=== PATIENT | male | born 1950 | race Caucasian/White ===

== ENCOUNTER 2023-01-11 10:02 | Outpatient (AMB) | payer MEDICARE, OTHER, SELFPAY ==
--- NOTE | 2023-01-11 10:09 | HO.NEPHOV ---
HPI HPI Comments History of Present Illness Details I had the delight of seeing Barry in follow-up for his CKD and hypertension. He is a diabetic. He does not monitor his blood sugar at home. He is not orthostatic. He does not have any chest pain, shortness of breath, proximal nocturnal dyspnea, orthopnea. He is trying to lose weight. His last renal ultrasound was normal. He is not on any MIGUEL ÁNGEL inhibitor. He takes nonsteroidal anti-inflammatory medications as o a needed basis. His last serum creatinine had been close to his baseline. [facility] Medical History (Updated 01/11/23 @ 10:45 by Suresh Cee MD) Acute kidney injury Diabetes Essential (primary) hypertension Chronic kidney disease, stage 3a Surgical History (Updated 01/11/23 @ 10:19 by Polly Morgan MA) History of ankle surgery History of surgery of head Social History (Updated 01/11/23 @ 10:18 by Polly Morgan MA) Alcohol intake: current Patient Tobacco Use Status: Former Tobacco user Vital Signs 01/11/23 10:11 Height 5 ft 9 in Weight 273 lb BMI 40.3 BP 100/60 Blood Pressure Location Lt brachial Position Sitting Pulse 102 H Pulse Source Pulse Oximeter Physical Exam Vital Signs: Last Vital Signs Pulse 102 H 01/11/23 10:11 BP 100/60 01/11/23 10:11 BMI result Body Mass Index 40.3 Const General: comfortable and no acute distress Orientation/consciousness: patient oriented x3 HEENT Head: Yes normocephalic Mouth: Normal oral and palatal mucosa present Eyes EOM: EOMs intact bilaterally Neck Neck: Yes supple Resp Auscultation: clear to auscultation bilaterally Cardio Jugular venous distension: no JVD Rate: regular rate GI Palpation (GI): Soft to palpation Auscultation: normal bowel sounds General: Yes no CVA tenderness Back/Spine/Pelvis Back: no CVA tenderness Skin General skin exam: no rashes or lesions noted Neuro General: patient oriented x3 and moves all extremities Extrem General: Yes no pedal edema Assessment & Plan Assessment & Plan (1) Essential (primary) hypertension: Code(s): I10 - Essential (primary) hypertension (2) Chronic kidney disease, stage 3a: Code(s): N18.31 - Chronic kidney disease, stage 3a (3) Diabetes: Code(s): E11.9 - Type 2 diabetes mellitus without complications Plan 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 He does not have any significant proteinuria. He is trying to lose weight. His blood pressure is currently at goal. He does not check his blood sugar at home. He is not on any Jardiance or Farxiga. I did not initiate him on MIGUEL ÁNGEL-inhibitor given his soft blood pressure. He should avoid nonsteroidal anti-inflammatory medications and should remain well hydrated. I did not make any medication changes today. All questions were answered. Follow-up blood work and urine studies were ordered. Time spend for patient encounter, retrieving data and documentation 22 minutes. Orders: Orders Electrolytes Today I10 - Essential (primary) hypertension, N18.31 - Chronic kidney disease, stage 3a Blood Urea Nitrogen Today I10 - Essential (primary) hypertension, N18.31 - Chronic kidney disease, stage 3a Creatinine Today I10 - Essential (primary) hypertension, N18.31 - Chronic kidney disease, stage 3a Protein Creatinine Ratio, Ur Today I10 - Essential (primary) hypertension, N18.31 - Chronic kidney disease, stage 3a Hemoglobin A1c Today E11.9 - Type 2 diabetes mellitus without complications, I10 - Essential (primary) hypertension, N18.31 - Chronic kidney disease, stage 3a Calcium Today I10 - Essential (primary) hypertension, N18.31 - Chronic kidney disease, stage 3a Coding Level of Care Code Est Pt Level 3 (94538) Diagnoses Essential (primary) hypertension I10 Chronic kidney disease, stage 3a N18.31 Diabetes E11.9
[2023-01-11 10:11] VITALS: BP 100/60; PULSE 102; BMI 40.3
== END 2023-01-11 10:49 | disposition home or self-care (01) ==
PROVIDERS: PCP Internal Medicine; Visit Provider Internal Medicine Nephrology
DX: I12.9 Hypertensive chronic kidney disease with stage 1 through stage 4 chronic kidney disease, or unspecified chronic kidney disease (principal); N18.31 Chronic kidney disease, stage 3a; E11.22 Type 2 diabetes mellitus with diabetic chronic kidney disease
CPT/HCPCS: 99213

== ENCOUNTER → 2023-01-11 10:02 | Outpatient (BNVA) | payer MEDICARE, OTHER, SELFPAY | PROVIDERS: PCP Internal Medicine; Visit Provider Internal Medicine Nephrology | DX: E11.22 Type 2 diabetes mellitus with diabetic chronic kidney disease (principal); I12.9 Hypertensive chronic kidney disease with stage 1 through stage 4 chronic kidney disease, or unspecified chronic kidney disease; N18.31 Chronic kidney disease, stage 3a | CPT/HCPCS: 99212 ==

== ENCOUNTER 2023-04-14 13:18 | Outpatient (REF) | payer MEDICARE, OTHER, SELFPAY ==
[2023-04-14 17:31] LABS: Anion Gap 13 (12-20); Blood Urea Nitrogen 24 mg/dL (9-16); Calcium 9.1 mg/dL (8.4-10.2); Carbon Dioxide 25 mmol/L (22-29); Chloride 106 mmol/L (96-108); Estimated Glomerular Filt Rate > 60; Potassium 4.2 mmol/L (3.3-5.1); Sodium 140 mmol/L (135-145)
[2023-04-14 17:34] LABS: Estimated Average Glucose 154 mg/dL
== END 2023-04-14 13:19 | disposition home or self-care (01) ==
LOC: HO.HKASLDS 13:18
PROVIDERS: Visit Provider Internal Medicine Nephrology
DX: I12.9 Hypertensive chronic kidney disease with stage 1 through stage 4 chronic kidney disease, or unspecified chronic kidney disease (principal); E11.22 Type 2 diabetes mellitus with diabetic chronic kidney disease; N18.31 Chronic kidney disease, stage 3a
CPT/HCPCS: 36415; 80051; 82310; 82565; 83036; 84520

== ENCOUNTER 2023-04-20 09:11 | Outpatient (AMB) | payer MEDICARE, OTHER, SELFPAY ==
--- NOTE | 2023-04-20 09:30 | HO.NEPHOV_ITS ---
HPI HPI Comments History of Present Illness Details I had the delight of seeing Barry in follow-up for his CKD and hypertension. He is a diabetic. He does not monitor his blood sugar at home. He is not orthostatic. He does not have any chest pain, shortness of breath, proximal nocturnal dyspnea, orthopnea. He is trying to lose weight. His last renal ultrasound was normal. He is not on any MIGUEL ÁNGEL inhibitor. He takes nonsteroidal anti-inflammatory medications as on a needed basis. His last serum creatinine had been close to his baseline. [facility] Medical History (Updated 01/11/23 @ 10:45 by Suresh Cee MD) Acute kidney injury Diabetes Essential (primary) hypertension Chronic kidney disease, stage 3a Surgical History History of ankle surgery History of surgery of head Social History Alcohol intake: current Patient Tobacco Use Status: Former Tobacco user Vital Signs 04/20/23 09:31 Height 5 ft 9 in Weight 278 lb 2 oz BMI 41.1 BP 126/70 Blood Pressure Location Lt brachial Position Sitting Pulse 94 Pulse Source Pulse Oximeter Pulse Oximetry (%) 97 Oxygen Delivery Method Room Air Physical Exam Vital Signs: Last Vital Signs Pulse 94 04/20/23 09:31 BP 126/70 04/20/23 09:31 Pulse Ox 97 04/20/23 09:31 Oxygen Delivery Method Room Air 04/20/23 09:31 BMI result Body Mass Index 41.1 Const General: comfortable and no acute distress Orientation/consciousness: patient oriented x3 HEENT Head: Yes normocephalic Mouth: Normal oral and palatal mucosa present Eyes EOM: EOMs intact bilaterally Neck Neck: Yes supple Resp Auscultation: clear to auscultation bilaterally Cardio Jugular venous distension: no JVD Rate: regular rate GI Palpation (GI): Soft to palpation Auscultation: normal bowel sounds General: Yes no CVA tenderness Back/Spine/Pelvis Back: no CVA tenderness Skin General skin exam: no rashes or lesions noted Neuro General: patient oriented x3 and moves all extremities Extrem General: Yes no pedal edema Assessment & Plan Assessment & Plan (1) Chronic kidney disease, stage 3a: Code(s): N18.31 - Chronic kidney disease, stage 3a (2) Essential (primary) hypertension: Code(s): I10 - Essential (primary) hypertension Plan 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 He does not have any significant proteinuria. He is trying to lose weight. His blood pressure is currently at goal. He does not check his blood sugar at home. He is not on any Jardiance / Farxiga/MIGUEL ÁNGEL-inhibitor. I plan to initiate him on low dose ACEI at next visit. He should avoid nonsteroidal anti-inflammatory medications and should remain well hydrated. He has a CPAP. I did not make any medication changes today. All questions were answered. Follow-up blood work and urine studies were ordered. Orders: Orders Creatinine Today I10 - Essential (primary) hypertension, N18.31 - Chronic kidney disease, stage 3a Blood Urea Nitrogen Today I10 - Essential (primary) hypertension, N18.31 - Chronic kidney disease, stage 3a Electrolytes Today I10 - Essential (primary) hypertension, N18.31 - Chronic kidney disease, stage 3a Protein Creatinine Ratio, Ur Today I10 - Essential (primary) hypertension, N18.31 - Chronic kidney disease, stage 3a Coding Level of Care Code Est Pt Level 3 (84188) Diagnoses Chronic kidney disease, stage 3a N18.31 Essential (primary) hypertension I10 Results Reviewed Nephrology Results: Sodium 140 mmol/L (135-145) 04/14/23 Potassium 4.2 mmol/L (3.3-5.1) 04/14/23 Chloride 106 mmol/L (96-108) 04/14/23 Carbon Dioxide 25 mmol/L (22-29) 04/14/23 BUN 24 mg/dL (9-16) H 04/14/23 Creatinine 1.16 mg/dL (0.5-1.4) 04/14/23 Calcium 9.1 mg/dL (8.4-10.2) 04/14/23
[2023-04-20 09:31] VITALS: BP 126/70; PULSE 94; O2SAT 97; BMI 41.1
== END 2023-04-20 09:45 | disposition home or self-care (01) ==
PROVIDERS: PCP Internal Medicine; Visit Provider Internal Medicine Nephrology
DX: N18.31 Chronic kidney disease, stage 3a (principal); I10 Essential (primary) hypertension
CPT/HCPCS: 99213

== ENCOUNTER → 2023-04-20 09:11 | Outpatient (BNVA) | payer MEDICARE, OTHER, SELFPAY | PROVIDERS: PCP Internal Medicine; Visit Provider Internal Medicine Nephrology | DX: E11.22 Type 2 diabetes mellitus with diabetic chronic kidney disease (principal); I12.9 Hypertensive chronic kidney disease with stage 1 through stage 4 chronic kidney disease, or unspecified chronic kidney disease; N18.31 Chronic kidney disease, stage 3a | CPT/HCPCS: 99212 ==

== ENCOUNTER 2023-08-11 08:50 | Outpatient (REF) | payer MEDICARE, OTHER, SELFPAY ==
[2023-08-11 18:29] LABS: Anion Gap 13 (12-20); Blood Urea Nitrogen 21 mg/dL (9-16); Carbon Dioxide 25 mmol/L (22-29); Chloride 107 mmol/L (96-108); Estimated Glomerular Filt Rate > 60; Potassium 4.1 mmol/L (3.3-5.1); Sodium 141 mmol/L (135-145)
[2023-08-11 18:55] LABS: Protein/Creatinine Ratio, Ur 0.06 (<0.2); Total Protein Urine Random 15 mg/dL (<12)
== END 2023-08-11 08:51 | disposition home or self-care (01) ==
LOC: HO.HKASLDS 08:50
PROVIDERS: Visit Provider Internal Medicine Nephrology
DX: I12.9 Hypertensive chronic kidney disease with stage 1 through stage 4 chronic kidney disease, or unspecified chronic kidney disease (principal); N18.31 Chronic kidney disease, stage 3a
CPT/HCPCS: 36415; 80051; 82565; 82570; 84156; 84520

== ENCOUNTER 2023-08-17 09:39 | Outpatient (AMB) | payer MEDICARE, OTHER, SELFPAY ==
--- NOTE | 2023-08-17 09:42 | HO.NEPHOV ---
Vital Signs 08/17/23 09:50 Height 5 ft 9 in Weight 281 lb BMI 41.5 BP 124/70 Blood Pressure Location Lt brachial Position Sitting Pulse 93 Pulse Source Pulse Oximeter Pulse Oximetry (%) 95 Oxygen Delivery Method Room Air Intake Visit Reasons: 4 mon follow up/ Conf Records Analyst Required: No Accompanied by: Self / Same As Patient Allergies shellfish derived Allergy (Verified 08/17/23 09:52) Unknown HPI Comments Details: I had the delight of seeing Barry in follow-up for his CKD and hypertension. He is a diabetic. He does not monitor his blood sugar at home. He is not orthostatic. He does not have any chest pain, shortness of breath, proximal nocturnal dyspnea, orthopnea. He is trying to lose weight. His last renal ultrasound was normal. He is not on any MIGUEL ÁNGEL inhibitor. He takes nonsteroidal anti-inflammatory medications as on a needed basis. His last serum creatinine had been close to his baseline [facility] Medical History (Updated 01/11/23 @ 10:45 by Suresh Cee MD) Acute kidney injury Diabetes Essential (primary) hypertension Chronic kidney disease, stage 3a Surgical History History of ankle surgery History of surgery of head Social History Alcohol intake: current Patient Tobacco Use Status: Former Tobacco user Review of Systems Const All systems reviewed & are unremarkable except as noted in HPI and below Physical Exam Const General: comfortable and no acute distress Orientation/consciousness: patient oriented x3 HEENT Head: Yes normocephalic Mouth: Normal oral and palatal mucosa present Eyes EOM: EOMs intact bilaterally Neck Neck: Yes supple Resp Auscultation: clear to auscultation bilaterally Cardio Jugular venous distension: no JVD Rate: regular rate GI Palpation (GI): Soft to palpation Auscultation: normal bowel sounds General: Yes no CVA tenderness Back/Spine/Pelvis Back: no CVA tenderness Skin General skin exam: no rashes or lesions noted Neuro General: patient oriented x3 and moves all extremities Extrem General: Yes no pedal edema Results Reviewed Nephrology Results: Sodium 141 mmol/L (135-145) 08/11/23 Potassium 4.1 mmol/L (3.3-5.1) 06/19/24 Chloride 107 mmol/L (96-108) 08/11/23 Carbon Dioxide 25 mmol/L (22-29) 08/11/23 BUN 21 mg/dL (9-16) H 08/11/23 Creatinine 1.15 mg/dL (0.5-1.4) 08/11/23 Calcium 9.1 mg/dL (8.4-10.2) 04/14/23 Urine Creatinine 262.50 mg/dL 08/11/23 Protein/Creatinin Ratio 0.06 (<0.2) 08/11/23 Assessment & Plan Assessment & Plan (1) Chronic kidney disease, stage 3a: Code(s): N18.31 - Chronic kidney disease, stage 3a Category: Medical (2) Essential (primary) hypertension: Code(s): I10 - Essential (primary) hypertension Category: Medical Plan 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 He does not have any significant proteinuria. He is trying to lose weight. His blood pressure is currently at goal. He does not check his blood sugar at home. He is not on any Jardiance / Farxiga/MIGUEL ÁNGEL-inhibitor. He should avoid nonsteroidal anti-inflammatory medications and should remain well hydrated. He has a CPAP. I did not make any medication changes today. All questions were answered. Follow-up blood work ordered. Orders: Orders Creatinine Today I10 - Essential (primary) hypertension, N18.31 - Chronic kidney disease, stage 3a Electrolytes Today I10 - Essential (primary) hypertension, N18.31 - Chronic kidney disease, stage 3a Blood Urea Nitrogen Today I10 - Essential (primary) hypertension, N18.31 - Chronic kidney disease, stage 3a Coding Level of Care Code Est Pt Level 4 (19069) Diagnoses Chronic kidney disease, stage 3a N18.31 Essential (primary) hypertension I10
[2023-08-17 09:50] VITALS: BP 124/70; PULSE 93; O2SAT 95; BMI 41.5
== END 2023-08-17 10:19 | disposition home or self-care (01) ==
PROVIDERS: PCP Internal Medicine; Visit Provider Internal Medicine Nephrology
DX: N18.31 Chronic kidney disease, stage 3a (principal); I10 Essential (primary) hypertension
CPT/HCPCS: 99214

== ENCOUNTER → 2023-08-17 09:39 | Outpatient (BNVA) | payer MEDICARE, OTHER, SELFPAY | PROVIDERS: PCP Internal Medicine; Visit Provider Internal Medicine Nephrology | DX: I12.9 Hypertensive chronic kidney disease with stage 1 through stage 4 chronic kidney disease, or unspecified chronic kidney disease (principal); N18.31 Chronic kidney disease, stage 3a; E11.22 Type 2 diabetes mellitus with diabetic chronic kidney disease | CPT/HCPCS: 99212 ==

== ENCOUNTER 2024-02-08 14:01 | Outpatient (REF) | payer MEDICARE, OTHER, SELFPAY ==
[2024-02-08 16:28] LABS: Anion Gap 9 (12-20); Blood Urea Nitrogen 16 mg/dL (9-16); Carbon Dioxide 26 mmol/L (22-29); Chloride 106 mmol/L (96-108); Estimated Glomerular Filt Rate > 60; Potassium 4.2 mmol/L (3.3-5.1); Sodium 137 mmol/L (135-145)
[2024-02-08 16:53] LABS: Creatinine Urine 141.08 mg/dL; Protein/Creatinine Ratio, Ur 0.08 (<0.2); Total Protein Urine Random 11 mg/dL (<12)
== END 2024-02-08 14:02 | disposition home or self-care (01) ==
LOC: HO.HMGCLDS 14:01
PROVIDERS: PCP Internal Medicine; Visit Provider Internal Medicine Nephrology
DX: I10 Essential (primary) hypertension (principal); N18.31 Chronic kidney disease, stage 3a
CPT/HCPCS: 36415; 80051; 82565; 82570; 84156; 84520

== ENCOUNTER 2024-02-10 10:17 | Outpatient (AMB) | payer MEDICARE, SELFPAY ==
--- NOTE | 2024-02-10 10:25 | HO.NEPHOV ---
Vital Signs 02/10/24 10:26 Height 5 ft 9 in Weight 276 lb 6 oz BMI 40.8 BP 110/70 Blood Pressure Location Lt brachial Position Sitting Pulse 94 Pulse Source Pulse Oximeter Pulse Oximetry (%) 94 Oxygen Delivery Method Room Air Intake Visit Reasons: 6 mon follow up/ Conf Sap Security Architect Required: No Accompanied by: Spouse Allergies shellfish derived Allergy (Verified 02/10/24 10:26) Unknown HPI Comments Details: I had the delight of seeing Barry in follow-up for his CKD and hypertension. He is a diabetic. He does not monitor his blood sugar at home. He is not orthostatic. He does not have any chest pain, shortness of breath, proximal nocturnal dyspnea, orthopnea. He is trying to lose weight. His last renal ultrasound was normal. He is not on any MIGUEL ÁNGEL inhibitor. He takes nonsteroidal anti-inflammatory medications as on a needed basis. His last serum creatinine had been close to his baseline ON LICENSE OF [facility] Medical History (Updated 02/10/24 @ 10:42 by Suresh Cee MD) Acute kidney injury Diabetes Essential (primary) hypertension Chronic kidney disease, stage 3a Surgical History History of ankle surgery History of surgery of head Social History Alcohol intake: current Patient Tobacco Use Status: Former Tobacco user Review of Systems Const All systems reviewed & are unremarkable except as noted in HPI and below Physical Exam Vital Signs: Last Vital Signs Pulse 94 02/10/24 10:26 BP 110/70 02/10/24 10:26 Pulse Ox 94 02/10/24 10:26 Oxygen Delivery Method Room Air 02/10/24 10:26 BMI result Body Mass Index 40.8 Const General: comfortable and no acute distress Orientation/consciousness: patient oriented x3 HEENT Head: Yes normocephalic Mouth: Normal oral and palatal mucosa present Eyes EOM: EOMs intact bilaterally Neck Neck: Yes supple Resp Auscultation: clear to auscultation bilaterally Cardio Jugular venous distension: no JVD Rate: regular rate GI Palpation (GI): Soft to palpation Auscultation: normal bowel sounds General: Yes no CVA tenderness Back/Spine/Pelvis Back: no CVA tenderness Skin General skin exam: no rashes or lesions noted Neuro General: patient oriented x3 and moves all extremities Extrem General: Yes no pedal edema Results Reviewed Nephrology Results: Sodium 137 mmol/L (135-145) 02/08/24 Potassium 4.2 mmol/L (3.3-5.1) 02/08/24 Chloride 106 mmol/L (96-108) 02/08/24 Carbon Dioxide 26 mmol/L (22-29) 02/08/24 BUN 16 mg/dL (9-16) 02/08/24 Creatinine 0.99 mg/dL (0.5-1.4) 02/08/24 Calcium 9.1 mg/dL (8.4-10.2) 04/14/23 Urine Creatinine 141.08 mg/dL 02/08/24 Protein/Creatinin Ratio 0.08 (<0.2) 02/08/24 Assessment & Plan Assessment & Plan (1) Chronic kidney disease, stage 3a: Code(s): N18.31 - Chronic kidney disease, stage 3a Category: Medical (2) Essential (primary) hypertension: Code(s): I10 - Essential (primary) hypertension Category: Medical (3) Diabetes: Code(s): E11.9 - Type 2 diabetes mellitus without complications Category: Medical Qualifiers: Diabetes mellitus type: type 2 Diabetes mellitus computer terminal operator insulin use: without fci use Diabetes mellitus complication status: without complication Qualified Code(s): E11.9 - Type 2 diabetes mellitus without complications Plan 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 He does not have any significant proteinuria. He is trying to lose weight. His blood pressure is currently at goal. He does not check his blood sugar at home. He is not on any Jardiance / Farxiga/MIGUEL ÁNGEL-inhibitor. He should avoid nonsteroidal anti-inflammatory medications and should remain well hydrated. He has a CPAP. I did not make any medication changes today. All questions were answered. Orders: Orders Creatinine 8 Months E11.9 - Type 2 diabetes mellitus without complications, I10 - Essential (primary) hypertension, N18.31 - Chronic kidney disease, stage 3a Blood Urea Nitrogen 8 Months E11.9 - Type 2 diabetes mellitus without complications, I10 - Essential (primary) hypertension, N18.31 - Chronic kidney disease, stage 3a Electrolytes 8 Months E11.9 - Type 2 diabetes mellitus without complications, I10 - Essential (primary) hypertension, N18.31 - Chronic kidney disease, stage 3a Calcium 8 Months E11.9 - Type 2 diabetes mellitus without complications, I10 - Essential (primary) hypertension, N18.31 - Chronic kidney disease, stage 3a Protein Creatinine Ratio, Ur 8 Months E11.9 - Type 2 diabetes mellitus without complications, I10 - Essential (primary) hypertension, N18.31 - Chronic kidney disease, stage 3a Coding Level of Care Code Est Pt Level 4 (18550) Diagnoses Chronic kidney disease, stage 3a N18.31 Essential (primary) hypertension I10 Type 2 diabetes mellitus without complication, without long-term current use of insulin E11.9 Diabetes mellitus type: type 2 Diabetes mellitus computer terminal operator insulin use: without computer terminal operator use Diabetes mellitus complication status: without complication
[2024-02-10 10:26] VITALS: BP 110/70; PULSE 94; O2SAT 94; BMI 40.8
== END 2024-02-10 10:46 | disposition home or self-care (01) ==
PROVIDERS: PCP Internal Medicine; Visit Provider Internal Medicine Nephrology
DX: N18.31 Chronic kidney disease, stage 3a (principal); I10 Essential (primary) hypertension; E11.9 Type 2 diabetes mellitus without complications
CPT/HCPCS: 99214

== ENCOUNTER → 2024-02-10 10:17 | Outpatient (BNVA) | payer MEDICARE, SELFPAY | PROVIDERS: PCP Internal Medicine; Visit Provider Internal Medicine Nephrology | DX: I12.9 Hypertensive chronic kidney disease with stage 1 through stage 4 chronic kidney disease, or unspecified chronic kidney disease (principal); N18.31 Chronic kidney disease, stage 3a; E11.9 Type 2 diabetes mellitus without complications | CPT/HCPCS: 99212 ==

== ENCOUNTER 2024-10-09 08:30 | Outpatient (REF) | payer MEDICARE, OTHER, SELFPAY ==
--- OUTSIDE RECORDS SUMMARY | 2024-10-05 09:30 | XMS_ITS | Encounter Summary ---
Author Organization [facility] [place] [address] Care Team Providers Care Inside Meter Tester Name Role Phone Román Zavala MD Primary Care Provider [phone] Reason for Referral * Imaging (Routine) - Authorized Specialty Diagnoses / Procedures Referred By Contac t Referred To Contact Cardiology Diagnoses Mild ascending aorta dilatation (CMS/HCC V24) Procedures Transthoracic echocardiogram (TTE) complete with PRN contrast, bubble, strain, and 3D order panel [place] TTE W 2D IMAGE COMPLETE W DOPPLER ECHO & COLOR FLOW DOPPLER ECHO [place] TRIPP 2D COMPLETE W/CONTRAST OR W & WO CONTRAST WITH DOPPLER Román Zavala MD [address] [place] [phone] Phone: tel: fax: [facility] Referral ID Status Reason Start Date Expiration Date V isits Requested Visits Authorized [id number] Authorized 10/05/2024 10/05/2025 1 1 * Medications - Authorized Specialty Diagnoses / Procedures Referred By Contac t Referred To Contact Diagnoses Back spasm Román Zavala MD [address] [place] [address] Phone: tel: fax: Referral ID Status Reason Start Date Expiration Date V isits Requested Visits Authorized [id number] Authorized 02/23/2024 01/03/2025 1 1 * Consultation (Routine) - Authorized Specialty Diagnoses / Procedures Referred By Contact Referred To Contact Pulmonary Disease / Pulmonology Diagnoses BRANDON (obstructive sleep apnea) Román Zavala MD [address] [place] [address] Phone: tel: [facility] [address] [place] [address] Phone: tel: fax: Referral ID Status Reason Start Date Expiration Date Visits Requested Visits Authorized [id number] Authorized Specialty Services Required 10/05/2024 10/05/2025 1 1 Reason for Visit * Reason Comments Follow-up Encounter Details Date Type Department Care Team (Late st Contact Info) Description 10/05/2024 9:30 AM EDT Office Visit Internal Medicine - [address] [phone] Román Zavala MD [address] [place] [phone] Type 2 diabetes mellitus with hyperglycemia, without long-term current use of insulin (CMS/HCC V24, CMS/HCC V28) (Primary Dx); Mild ascending aorta dilatation (CMS/HCC V24); Pure hypercholesterolemi a; BRANDON (obstructive sleep apnea); Screening for prostate cancer; Back spasm Social History Tobacco Use Types Packs/Day Years Used Date Smoking Tobacco: Never Smokeless Tobacco: Never Tobacco Cessation:Counseling Given: Not Answered Alcohol Use Standard Drinks/Week Comments Yes 1 (1 standard drink = 0.6 oz pur e alcohol) Sex and Gender Information Value Date Recorded Sex Assigned at Not on file Legal Sex Male 1:43 PM EST Gender Identity Not on file Sexual Orientation Not on file documented as of this encounter Last Filed Vital Signs Vital Sign Reading Time Taken Comments Blood Pressure 132/72 10/05/2024 9:25 AM EDT Pulse 86 10/05/2024 9:25 AM EDT Temperature - - Respiratory Rate - - Oxygen Saturation - - Inhaled Oxygen Concentration - - Weight 127 kg (279 lb 1.6 oz) 10/05/2024 9:25 AM EDT Height 175.3 cm (5' 9 ) 10/05/2024 9:25 AM EDT Body Mass Index 41.22 10/05/2024 9:25 AM EDT documented in this encounter Ordered Prescriptions Prescription Sig Dispense Quantity Refills Last Filled Start Date End Date cyclobenzaprine (FLEXERIL) 5 mg tabletIndications: Back spasm Take 1 tablet (5 mg total) by mouth at bedtime as needed for muscle spasms. 30 tablet 10/05/2024 metFORMIN XR (GLUCOPHAGE-XR) 500 mg 24 hr tablet TAKE 2 TABLETS IN THE MORNING AND 1 TABLET IN THE EVENING 270 each 1 10/05/2024 documented in this encounter Progress Notes * Román Zavala MD - 10/05/2024 9:30 AM EDTAssociated Problem(s): Mild ascending aorta dilatation (CMS/HCC V24) Echocardiogram ordered to follow-up on his ascending aortic dilatation. Orders: Transthoracic echocardiogram (TTE) complete with PRN contrast, bubble, strain, and 3D order panel; Future * Román Zavala MD - 10/05/2024 9:30 AM EDTAssociated Problem(s): Pure hypercholesterolemia He will follow low-cholesterol diet. Continue atorvastatin. * Román Zavala MD - 10/05/2024 9:30 AM EDTAssociated Problem(s): BRANDON (obstructive sleep apnea) Continue CPAP and referral to pulmonology placed. Orders: Ambulatory referral to Pulmonology; Future * Román Zavala MD - 10/05/2024 9:30 AM EDT CHIEF COMPLAINT: Chief Complaint Patient presents with Follow-up IDENTIFIER: Barry Martin is a 73 y.o. old male. HPI Patient is a 73-year-old man who presents to the office today for medication review. He has a history of diabetes and is currently on metformin, glipizide, dulaglutide. Patient has a history of hyperlipidemia is currently on atorvastatin. Uses furosemide only as needed for lower extremity edema. Patient uses flexeril only as needed for back spasms. He has been seen by nephrology on 02/10/2024 for CKD, hypertension. Advised to avoid NSAIDs. No medication changes were made. Patient previously saw pulmonology on 07/12/2023 for his severe obstructive sleep apnea. He has undergone echocardiogram on 10/15/2023 which showed left ventricular ejection fraction to be 70 to 75%, ascending aorta to be 3.8 cm. He had his colonoscopy done on 11/10/2023 which revealed a 5 mm polyp in the ascending colon, distaltransverse colon, diverticulosis, nonbleeding internal hemorrhoids. Biopsy revealed tubular adenomaof the transverse colon polyp. Colonic mucosa of the right colon polyp which was negative for dysplasia. ROS: GENERAL: No malaise, significant weight loss or fever HEENT: No changes in hearing or vision, nose bleeds or other nasal problems RESPIRATORY: No cough, wheezing or shortness of breath CARDIOVASCULAR: No chest pain, leg swelling or palpitations GI: No abdominal discomfort, blood in stools or black stools NECK: No lumps, goiter, pain or significant neck swelling : No dysuria, frequency or incontinence MUSCULOSKELETAL: See HPI SKIN: No lesions, rash or itching NEURO: No persistent headache, syncope, seizures, weakness or numbness PAST MEDICAL HISTORY: Patient Active Problem List Diagnosis Date Noted CKD (chronic kidney disease) stage 3, GFR 30-59 ml/min ([facility] V24, [facility] V28) 01/28/2023 Bilateral diabetic retinopathy ([facility] V24, [facility] V28) 04/20/2022 Controlled type 2 diabetes with retinopathy ([facility] V24, [facility] V28) 04/20/2022 Mild ascending aorta dilatation ([facility] V24) 10/23/2019 Essential hypertension 09/01/2019 Leg cramps 02/10/2019 Hyperlipidemia 10/08/2017 Type 2 diabetes mellitus with peripheral vascular disease ([facility] V24, [facility] V28) 08/18/2016 Pure hypercholesterolemia 08/18/2016 ED (erectile dysfunction) 08/18/2016 Edema 08/18/2016 BRANDON (obstructive sleep apnea) 08/18/2016 Skin benign neoplasm 08/07/2015 Fracture, ankle 03/08/2015 Past Surgical History: Procedure Laterality Date COLONOSCOPY 2013 PROCEDURE: HISTORICAL COLONOSCOPY; COMMENT: polyp, rpt 5 years LIPOMA RESECTION Right 06/24/2020 PROCEDURE: SKIN TISSUE EXCISION(LIPOMA); COMMENT: excision of right upper back subcutaneous lipoma - Dr. Johnie Davidson SOCIAL HISTORY: Social History Tobacco Use Smoking status: Never Smokeless tobacco: Never Substance Use Topics Alcohol use: Yes Alcohol/week: 1.0 standard drink of alcohol FAMILY HISTORY: Family History Problem Relation Name Age of Onset Other (Other: pancreatitis) Mother Other (Other: mesothelioma) Father Family Status Relation Name Status Mother Father No partnership data on file MEDICATIONS DISCONTINUED/REORDERED: Medications Discontinued During This Encounter Medication Reason cyclobenzaprine (FLEXERIL) 5 mg tablet Reorder metFORMIN XR (GLUCOPHAGE-XR) 500 mg 24 hr tablet Reorder ACTIVE MEDICATIONS: Outpatient Medications Marked as Taking for the 10/05/24 encounter (Office Visit) with Román Zavala MD Medication Sig Dispense Refill aspirin 81 mg EC tablet Take 1 tablet (81 mg total) by mouth 1 (one) time each day. atorvastatin (LIPITOR) 10 mg tablet TAKE 1 TABLET BY MOUTH EVERY DAY 90 tablet 1 blood-glucose meter kit 1 Act by Not Applicable route. CHOLECALCIFEROL, VITAMIN D3, ORAL Take 1 tablet by mouth 1 (one) time each day. cyclobenzaprine (FLEXERIL) 5 mg tablet Take 1 tablet (5 mg total) by mouth at bedtime as needed formuscle spasms. 30 tablet 0 dulaglutide (Trulicity) 3 mg/0.5 mL pen injector injection Inject 0.5 mL (3 mg total) under the skin every 7 (seven) days. 2 mL 3 furosemide (LASIX) 20 mg tablet TAKE 1 TABLET BY MOUTH DAILY NEEDED FOR EDEMA. 30 tablet 0 glipiZIDE (GLUCOTROL XL) 10 mg 24 hr tablet TAKE 1 TABLET BY MOUTH TWICE A DAY WITH FOOD 180 tablet0 metFORMIN XR (GLUCOPHAGE-XR) 500 mg 24 hr tablet TAKE 2 TABLETS IN THE MORNING AND 1 TABLET IN THE EVENING 270 each 1 omega-3 acid ethyl esters (LOVAZA) 1 gram capsule Take 1 capsule (1 g total) by mouth 2 (two) timesa day. vitamin E, dl,tocopheryl acet, (vitamin E, dl, acetate,) 45 mg (100 unit) capsule Take 1 capsule (100 Units total) by mouth 1 (one) time each day. [DISCONTINUED] cyclobenzaprine (FLEXERIL) 5 mg tablet TAKE 1 TABLET BY MOUTH AT BEDTIME NEEDED FOR MUSCLE SPASMS. 30 tablet 0 [DISCONTINUED] metFORMIN XR (GLUCOPHAGE-XR) 500 mg 24 hr tablet TAKE 2 TABLETS IN THE MORNING AND 1TABLET IN THE EVENING 270 tablet 1 ALLERGIES: Allergies Allergen Reactions Shellfish Derived PHYSICAL EXAM: Visit Vitals BP 132/72 Pulse 86 Ht 1.753 m (69 ) Wt 127 kg (279 lb 1.6 oz) BMI 41.22 kg/m?? Smoking Status Never BSA 2.38 m?? EYES: PERRL, conjunctiva and sclera normal NOSE/SINUS: negative MOUTH/THROAT: no erythema or exudates NECK: negative HEART: regular rate, regular rhythm and no murmur LUNG: clear to auscultation LYMPH NODES: grossly normal ABDOMEN: Bowel sounds normoactive, no bruits, soft, non-tender, without organomegaly or palpable masses EXTREMITIES: Trace edema bilaterally in the lower extremities NEURO: Awake, alert and oriented x 3, Normal gait and No involuntary motions. SKIN: negative Assessment & Plan Type 2 diabetes mellitus with hyperglycemia, without long-term current use of insulin ([facility] V24,[facility] V28) Diabetic labs ordered. He will follow diabetic diet. Continue metformin, glipizide, dulaglutide. Hestates he had his diabetic eye exam already. Orders: Hemoglobin A1c; Future CBC and differential; Future Basic metabolic panel; Future Microalbumin creatinine urine ratio; Future Mild ascending aorta dilatation ([facility] V24) Echocardiogram ordered to follow-up on his ascending aortic dilatation. Orders: Transthoracic echocardiogram (TTE) complete with PRN contrast, bubble, strain, and 3D order panel; Future Pure hypercholesterolemia He will follow low-cholesterol diet. Continue atorvastatin. BRANDON (obstructive sleep apnea) Continue CPAP and referral to pulmonology placed. Orders: Ambulatory referral to Pulmonology; Future Screening for prostate cancer Screening PSA levels ordered. Orders: Prostate specific antigen screen; Future Back spasm I have given him a prescription of cyclobenzaprine. He uses only as needed when his lower back muscles flares up. Orders: cyclobenzaprine (FLEXERIL) 5 mg tablet; Take 1 tablet (5 mg total) by mouth at bedtime as needed for muscle spasms. Today's documentation was made using voice recognition software.This note may contain grammatical errors secondary to this software. documented in this encounter Plan of Treatment Upcoming Encounters Date Type Department Care Team (Late st Contact Info) Description 02/05/2025 10:15 AM EST Office Visit Internal Medicine - [address] [address] Jeri Vela, PREMA [address] [place] [id number] Scheduled Orders Name Type Priority Associated Diagnoses Order Schedule Transthoracic echocardiogram (TTE) complete with PRN contrast, bubble, strain, and 3D order panel Echocardiography Routine Mild ascending aorta dilatation (CMS/HCC V24) 1 Occurrences starting 10/05/2024 until 10/05/2025 Scheduled Referrals Name Type Priority Associated Diagnoses Order Schedule Ambulatory referral to Pulmonology Outpatient Referral Routine BRANDON (obstructive sleep apnea) 1 Occurrences starting 10/05/2024 until 10/05/2025 documented as of this encounter Results * Microalbumin creatinine urine ratio (10/06/2024 9:40 AM EDT) Creatinine, Urine 135.0 mg/dL LAB CHEMISTRY METHOD 10/06/2024 2:23 PM EDT [facility] Microalb, Ur 14.0 0.0 - 29.0 mg/L LAB CHEMISTRY METHOD 10/06/2024 2:23 PM EDT [facility] Microalb/Creat Ratio 10 <30 mg/g creat LAB CHEMISTRY METHOD 10/06/2024 2:23 PM EDT [facility] Urine Urine specimen obtained by clean catch procedure / Unknown Non-blood Collection / Unknown 10/06/2024 9:40 AM EDT 10/06/2024 9:40 AM EDT Román Zavala MD LAB URINE ORDERABLES Elsa l Result [facility] [address] [place] [address], * (ABNORMAL) Basic metabolic panel (10/05/2024 9:54 AM EDT) Sodium 136 133 - 145 mmol/L LAB CHEMISTRY METHOD 10/05/2024 12:23 PM EDT [facility] Potassium 4.3 3.5 - 5.5 mmol/L LAB CHEMISTRY METHOD 10/05/2024 12:23 PM EDT [facility] Chloride 104 96 - 110 mmol/L LAB CHEMISTRY METHOD 10/05/2024 12:23 PM [facility] CO2 27 21 - 32 mmol/L LAB CHEMISTRY METHOD 10/05/2024 12:23 PM [facility] Anion Gap 5 3 - 11 LAB CHEMISTRY METHOD 10/05/2024 12:23 PM [facility] Glucose 204(H) 70 - 100 mg/dL LAB CHEMISTRY METHOD 10/05/2024 12:23 PM [facility] BUN 22 5 - 25 mg/dL LAB CHEMISTRY METHOD 10/05/2024 12:23 PM [facility] Creatinine 1.22 0.70 - 1.30 mg/dL LAB CHEMISTRY METHOD 10/05/2024 12:23 PM [facility] eGFR 62 >=60 mL/min/1. 73m2 LAB CHEMISTRY METHOD 10/05/2024 12:23 PM [facility] Comment:Calculation based on the Chronic Kidney Disease Epidemiology Collaboration (CKD-EPI) equation refit without adjustment for race. BUN/Creatinine Ratio 18.0 LAB CHEMISTRY METHOD 10/05/2024 12:23 PM [facility] Calcium 8.8 8.5 - 10.5 mg/dL LAB CHEMISTRY METHOD 10/05/2024 12:23 PM [facility] Blood Venous blood specimen / Unknown Venipuncture / Unknown 10/05/2024 9:54 AM EDT 10/05/2024 9:54 AM EDT us Román Zavala MD LAB BLOOD ORDERABLES Elsa carranza Result [facility] [address] [place] [address], * (ABNORMAL) Hemoglobin A1c (10/05/2024 9:54 AM EDT) Hemoglobin A1C 7.7(H) <6.5 % LAB CHEMISTRY METHOD 10/05/2024 1:54 PM EDT [facility] Mean Bld Glu Estim. 174 mg/dL LAB CHEMISTRY METHOD 10/05/2024 1:54 PM EDT [facility] Blood Venous blood specimen / Unknown Venipuncture / Unknown 10/05/2024 9:54 AM EDT 10/05/2024 9:54 AM EDT Román Zavala MD LAB BLOOD ORDERABLES Elsa l Result Performing Organization Address [facility]/ZIP Co de Phone Number [facility] [address] [place] [address], [place] [phone] * Prostate specific antigen screen (10/05/2024 9:54 AM EDT) PSA 2.68 0.00 - 4.00 ng/mL LAB CHEMISTRY METHOD 10/05/2024 1:39 PM EDT [facility] Blood Venous blood specimen / Unknown Venipuncture / Unknown 10/05/2024 9:54 AM EDT 10/05/2024 9:54 AM EDT Narrative [facility] - 10/05/2024 1:39 PM EDT The Siemens Advia Centaur Chemiluminescent Immunoassay is used. Results obtained with different assay methods or kits cannot be used interchangeably. Results cannot be interpreted as absolute evidence of the presence or absence of malignant disease. Román Zavala MD LAB BLOOD ORDERABLES Elsa l Result Performing Organization Address City/[facility]/ZIP Co de Phone Number [facility] [address] [place] [address], [place] [phone] documented in this encounter Visit Diagnoses Diagnosis Type 2 diabetes mellitus with hyperglycemia, without long-term current use of insulin ([facility] V24, [facility] V28)- Primary Mild ascending aorta dilatation ([facility] V24) Pure hypercholesterolemia BRANDON (obstructive sleep apnea) Obstructive sleep apnea (adult) (pediatric) Screening for prostate cancer Special screening for malignant neoplasm of prostate Back spasm Other symptoms referable to back documented in this encounter Discontinued Medications Medication Sig Discontinue Reason Start Date End Da te cyclobenzaprine (FLEXERIL) 5 mg tabletIndications:Back spasm TAKE 1 TABLET BY MOUTH AT BEDTIME NEEDED FOR MUSCLE SPASMS. Reorder 06/26/2024 10/05/2024 metFORMIN XR (GLUCOPHAGE-XR) 500 mg 24 hr tabletIndications:Type 2 diabetes mellitus with other specified complication (CMS/HCC V24, CMS/HCC V28) TAKE 2 TABLETS IN THE MORNING AND 1 TABLET IN THE EVENING Reorder 07/19/2024 10/05/2024 documented as of this encounter Care Teams Inside Meter Tester Relationship Specialty Start Date End Date Román Zavala MD [address] [place] [id number] PCP - General Internal Medicine 03/07/19 documented as of this encounter
--- OUTSIDE RECORDS SUMMARY | 2024-10-09 08:57 | XMS_ITS | Clinical Summary ---
Author Organization [facility] Address [address] [facility] [place] [address] Phone Care Team Providers Care Ceramic Capacitor Processor Name Role Phone Román Waldron Primary Care Provider [phone] Allergies Active Allergy Reactions Criticality Noted Date Comments Shellfish-Derived Products 2 Medications omega-3 (FISH OIL) 1200 MG capsule Take by mouth 1 (one) time each day Active alpha tocopherol (VITAMIN E) 100 units capsule Take 100 Units by mouth 1 (one) time each day Active metFORMIN (GLUCOPHAGE) 500 MG tablet Take 500 mg by mouth 1 (one) time each day Active Dulaglutide 0.75 MG/0.5ML solution pen-injector Inject under the skin per week Active glipiZIDE (GLUCOTROL) 10 MG tablet Take 10 mg by mouth in the morning and 10 mg in the evening. Take before meals. Active atorvastatin (LIPITOR) 10 MG tablet Take 10 mg by mouth 1 (one) time each day Active aspirin (ST OPAL) 81 MG EC tablet Take 81 mg by mouth 1 (one) time each day Active Blood Glucose Monitoring Suppl (FreeStyle Lite) w/Device kit USE TWICE DAILY 04/23/2021 Active furosemide (LASIX) 20 MG tablet Take 20 mg by mouth if needed Active Active Problems Problem Noted Date Diagnosed Date Hypertension 06/17/2021 Stage 3a chronic kidney disease 06/17/2021 Acute nontraumatic kidney injury 05/20/2021 Chronic renal insufficiency 05/19/2021 Essential hypertension 09/01/2019 Resolved Problems Problem Noted Date Diagnosed Date Resolved Date Ascending aorta dilatation 10/23/2019 0 05/19/2021 Overview (05/19/2021): Echocardiogram (10/12/2019): Mild, 3.9 cm. Cramp in lower limb 02/10/2019 05/20/19 22 Edema 08/18/2016 05/19/2021 Erectile dysfunction 08/18/2016 022 Obstructive sleep apnea syndrome 08/18/2016 05/19/2021 Overview (05/19/2021): Not using CPAP Pure hypercholesterolemia 08/18/2016 Type 2 diabetes mellitus 08/18/2016 Overview (05/19/2021): Erectile dysfunction Immunizations Immunization Administration Dates Next Due Pneumococcal Conjugate 13-Valent 04/19/2020 Tdap 10/17/2019 Family History Medical History Relation Comments Cancer Father Relation Status Comments Father Social History Tobacco Use Types Packs/Day Years Used Date Smoking Tobacco: Former Smokeless Tobacco: Never Tobacco Cessation:Counseling Given: Not Answered Alcohol Use Standard Drinks/Week Comments Not Currently 0 (1 standard drink = 0.6 oz pur e alcohol) Sex and Gender Information Value Date Recorded Sex Assigned at Not on file Legal Sex Male 2:40 PM EDT Gender Identity Not on file Sexual Orientation Not on file Last Filed Vital Signs Vital Sign Reading Time Taken Comments Blood Pressure 114/70 08/03/2022 2:05 PM EDT Pulse 92 08/03/2022 2:05 PM EDT Temperature - - Respiratory Rate - - Oxygen Saturation 93% 05/20/2021 8:35 AM EDT Inhaled Oxygen Concentration - - Weight 127 kg (280 lb 12.8 oz) 08/03/2022 2:05 P M EDT Height - - Body Mass Index - - Plan of Treatment Health Maintenance Due Date Last Done Comments Colorectal Cancer Screening: Annual FOBT 1998 Colorectal Cancer Screening: Colonoscopy 1998 Colorectal Cancer Screening: Sigmoidoscopy 1998 Pneumococcal Vaccine: 50+ Ye ars (2 of 2 - PPSV23, PCV20, or PCV21) 06/14/2020 04/19/2020 Influenza Vaccine (#1) 2024 Hepatitis B Vaccine Aged Out No longe r eligible based on patient's age to complete this topic Insurance [place] [address] Medicare Care Teams Ceramic Capacitor Processor Relationship Specialty Start Date End Date Román Waldron [address] [place] [id number] PCP - General Internal Medicine 05/20/21
--- OUTSIDE RECORDS SUMMARY | 2024-10-09 08:57 | XMS_ITS ---
Author Name [facility] Organization Unknown Care Team Organization Name Specialty Phone Email Start Date End Da te [facility] Ham Figueredo Primary [facility] 10/29/20222023 [facility] Román Zavala Primary Care 12/30/2021 10/11/2023
[2024-10-09 13:27] LABS: Anion Gap 15 (12-20); Blood Urea Nitrogen 20 mg/dL (9-16); Calcium 9.4 mg/dL (8.4-10.2); Carbon Dioxide 25 mmol/L (22-29); Chloride 104 mmol/L (96-108); Estimated Glomerular Filt Rate > 60; Potassium 4.3 mmol/L (3.3-5.1); Sodium 140 mmol/L (135-145)
[2024-10-09 13:57] LABS: Protein/Creatinine Ratio, Ur 0.06 (<0.2); Total Protein Urine Random 14 mg/dL (<12)
== END 2024-10-09 08:31 | disposition home or self-care (01) ==
LOC: HO.HKASLDS 08:30
PROVIDERS: Visit Provider Internal Medicine Nephrology
DX: E11.22 Type 2 diabetes mellitus with diabetic chronic kidney disease (principal); I12.9 Hypertensive chronic kidney disease with stage 1 through stage 4 chronic kidney disease, or unspecified chronic kidney disease; N18.31 Chronic kidney disease, stage 3a
CPT/HCPCS: 36415; 80051; 82310; 82565; 82570; 84156; 84520

== ENCOUNTER 2024-10-12 09:15 | Outpatient (AMB) | payer OTHER, MEDICARE, SELFPAY ==
--- NOTE | 2024-10-12 09:24 | HO.NEPHOV_ITS ---
Vital Signs 10/12/24 09:25 Height 5 ft 9 in Weight 276 lb BMI 40.8 BP 126/70 Blood Pressure Location Lt brachial Position Sitting Pulse 84 Pulse Source Pulse Oximeter Pulse Oximetry (%) 96 Oxygen Delivery Method Room Air Intake Visit Reasons: 8mon follow up w/labs-Conf [employer] Required: No Accompanied by: Self / Same As Patient Allergies shellfish derived Allergy (Verified 10/12/24 09:25) Unknown HPI Comments Details: I had the delight of seeing Barry in follow-up for his CKD and hypertension. He is a diabetic. He does not monitor his blood sugar at home. He is not orthostatic. He does not have any chest pain, shortness of breath, proximal nocturnal dyspnea, orthopnea. He is trying to lose weight. His last renal ultrasound was normal. He is not on any MIGUEL ÁNGEL inhibitor. He takes nonsteroidal anti-inflammatory medications as on a needed basis. His last serum creatinine had been close to his baseline [facility] Medical History (Updated 02/10/24 @ 10:42 by Suresh Cee MD) Acute kidney injury Diabetes Essential (primary) hypertension Chronic kidney disease, stage 3a Surgical History History of ankle surgery History of surgery of head Social History Alcohol intake: current Patient Tobacco Use Status: Former Tobacco user Review of Systems Const All systems reviewed & are unremarkable except as noted in HPI and below Physical Exam Vital Signs: Last Vital Signs Pulse 84 10/12/24 09:25 BP 126/70 10/12/24 09:25 Pulse Ox 96 10/12/24 09:25 Oxygen Delivery Method Room Air 10/12/24 09:25 BMI result Body Mass Index 40.8 Const General: comfortable and no acute distress Orientation/consciousness: patient oriented x3 HEENT Head: Yes normocephalic Mouth: Normal oral and palatal mucosa present Eyes EOM: EOMs intact bilaterally Neck Neck: Yes supple Resp Auscultation: clear to auscultation bilaterally Cardio Jugular venous distension: no JVD Rate: regular rate GI Palpation (GI): Soft to palpation Auscultation: normal bowel sounds General: Yes no CVA tenderness Back/Spine/Pelvis Back: no CVA tenderness Skin General skin exam: no rashes or lesions noted Neuro General: patient oriented x3 and moves all extremities Extrem General: Yes no pedal edema Results Reviewed Nephrology Results: Sodium, (135-145) 140 mmol/L 10/09/24 Potassium, (3.3-5.1) 4.3 mmol/L 10/09/24 Chloride, (96-108) 104 mmol/L 10/09/24 Carbon Dioxide, (22-29) 25 mmol/L 10/09/24 BUN, (9-16) 20 mg/dL H 10/09/24 Creatinine, (0.5-1.4) 1.17 mg/dL 10/09/24 Calcium, (8.4-10.2) 9.4 mg/dL 10/09/24 Urine Creatinine 248.07 mg/dL 10/09/24 Protein/Creatinin Ratio, (<0.2) 0.06 10/09/24 Assessment & Plan Assessment & Plan (1) Essential (primary) hypertension: Code(s): I10 - Essential (primary) hypertension Category: Medical (2) Chronic kidney disease, stage 3a: Code(s): N18.31 - Chronic kidney disease, stage 3a Category: Medical Plan 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 He does not have any significant proteinuria. He is trying to lose weight. His blood pressure is currently at goal. He does not check his blood sugar at home. He is not on any Jardiance / Farxiga/MIGUEL ÁNGEL-inhibitor. He should avoid nonsteroidal anti- inflammatory medications and should remain well hydrated. He has a CPAP. I did not make any medication changes today. All questions were answered. Orders: Orders Blood Urea Nitrogen 7 Months I10 - Essential (primary) hypertension, N18.31 - Chronic kidney disease, stage 3a Protein Creatinine Ratio, Ur 7 Months I10 - Essential (primary) hypertension, N18.31 - Chronic kidney disease, stage 3a Creatinine 7 Months I10 - Essential (primary) hypertension, N18.31 - Chronic kidney disease, stage 3a Electrolytes 7 Months I10 - Essential (primary) hypertension, N18.31 - Chronic kidney disease, stage 3a Coding Level of Care Code Est Pt Level 4 (15587) Diagnoses Essential (primary) hypertension I10 Chronic kidney disease, stage 3a N18.31
[2024-10-12 09:25] VITALS: BP 126/70; PULSE 84; O2SAT 96; BMI 40.8
--- OUTSIDE RECORDS SUMMARY | 2024-10-12 10:19 | XMS_ITS | Encounter Summary ---
Author Organization [facility] [place] [address] Care Team Providers Care Job Interviewer Name Role Phone Román Zavala MD Primary Care Provider [phone] Reason for Visit * Reason Onset Date Comments Results 10/06/2024 Encounter Details Date Type Department Care Team (Late st Contact Info) Description 10/06/2024 Telephone Internal Medicine - [address] [place] [id number] Lalita Peña MA Results Social History Tobacco Use Types Packs/Day Years Used Date Smoking Tobacco: Never Smokeless Tobacco: Never Alcohol Use Standard Drinks/Week Comments Yes 1 (1 standard drink = 0.6 oz pur e alcohol) Sex and Gender Information Value Date Recorded Sex Assigned at Not on file Legal Sex Male 1:43 PM EST Gender Identity Not on file Sexual Orientation Not on file documented as of this encounter Progress Notes * Lalita Peña MA - 10/06/2024 9:30 AM EDT Attempted to contact pt / no answer, unable to Lm. VM is full Please put thru [phone] ----- Message from Yulissa Zavala MD sent at 10/05/2024 7:14 PM EDT ----- Please inform the patient that his diabetes levels did improve but still elevated. Have increased his metformin dose to 500 mg, 2 tablets twice a day with food. A new prescription has been sent to the pharmacy. Rest of his lab work were reassuring. documented in this encounter Plan of Treatment Upcoming Encounters Date Type Department Care Team (Late st Contact Info) Description 01/08/2025 11:00 AM EST Ancillary Procedure [facility] - [address] [place] [address] 02/05/2025 10:15 AM EST Office Visit Internal Medicine - [address] [address] Jeri Vela NP [address] [place] [id number] documented as of this encounter Visit Diagnoses Not on filedocumented in this encounter Care Teams Job Interviewer Relationship Specialty Start Date End Date Román Zavala MD [address] [place] [id number] PCP - General Internal Medicine 03/07/19 documented as of this encounter
--- OUTSIDE RECORDS SUMMARY | 2024-10-12 10:20 | XMS_ITS | Clinical Summary ---
Author Organization [facility] Address [address] [facility] [address] [place] [address] Phone Care Team Providers Care Interchange Agent Name Role Phone Román Waldron Primary Care Provider [phone] Allergies Active Allergy Reactions Criticality Noted Date [...] age to complete this topic Insurance [place] [address] Medicare Care Teams Interchange Agent Relationship Specialty Start Date End Date Román Waldron [address] [place] [id number] PCP - General Internal Medicine 05/20/21
== END 2024-10-12 09:39 | disposition home or self-care (01) ==
PROVIDERS: PCP Internal Medicine; Visit Provider Internal Medicine Nephrology
DX: I10 Essential (primary) hypertension (principal); N18.31 Chronic kidney disease, stage 3a
CPT/HCPCS: 99214

== ENCOUNTER → 2024-10-12 09:15 | Outpatient (BNVA) | payer MEDICARE, SELFPAY | PROVIDERS: PCP Internal Medicine; Visit Provider Internal Medicine Nephrology | DX: I12.9 Hypertensive chronic kidney disease with stage 1 through stage 4 chronic kidney disease, or unspecified chronic kidney disease (principal); N18.31 Chronic kidney disease, stage 3a | CPT/HCPCS: 99212 ==